=== PATIENT | female | born 1930 | race Hispanic/Latino ===

== ENCOUNTER 2018-01-08 21:28 | Emergency (ER) | payer MEDICARE ==
[2018-01-08 21:37] VITALS: TEMP 97.7
--- NOTE | 2018-01-08 21:39 | C.PDOC ---
History Of Present Illness The patient presents to the ED for evaluation of abdominal pain which began earlier today. Patient states she began experiencing pain to her "upper stomach " region after she took Tramadol for her rib pain. She denies fever, chills, nausea, vomiting. Time Seen by Provider: 01/08/18 21:38 Chief Complaint (Nursing): Abdominal Pain History Per: Patient History/Exam Limitations: no limitations Onset/Duration Of Symptoms: Hrs Current Symptoms Are (Timing): Still Present Severity: Mild Pain Scale Rating Of: 2 Location Of Pain/Discomfort: Other (upper abdomen ) Radiation Of Pain To:: None Quality Of Discomfort: "Pain" Associated Symptoms: denies: Fever, Chills, Nausea, Vomiting Exacerbating Factors: None Alleviating Factors: None Last Bowel Movement: Today Recent travel outside of the [place]: No Additional History Per: Patient Abnormal Vaginal Bleeding: No Past Medical History Reviewed: Historical Data, Nursing Documentation, Vital Signs Vital Signs: Last Vital Signs Temp 97.7 F 01/08/18 21:33 Pulse 72 01/08/18 22:31 Resp 20 01/08/18 22:31 BP 156/89 H 01/08/18 22:31 Pulse Ox 98 01/08/18 23:41 - Medical History PMH: Arthritis (KNEES), Atrial Fibrillation, HTN Surgical History: No Surg Hx - [facility] Procedures CORONAR ARTERIOGR-2 CATH (11/18/06) RT & LT HEART ANGIOCARD (11/18/06) RT/LEFT HEART CARD CATH (11/18/06) Family History: States: Unknown Family Hx - Social History Hx Alcohol Use: No Hx Substance Use: No - Immunization History Hx Tetanus Toxoid Vaccination: No Hx Influenza Vaccination: Yes Hx Pneumococcal Vaccination: No Review Of Systems Constitutional: Negative for: Fever, Chills Cardiovascular: Negative for: Chest Pain, Palpitations Respiratory: Negative for: Cough, Shortness of Breath Gastrointestinal: Positive for: Abdominal Pain. Negative for: Nausea, Vomiting , Diarrhea, Constipation Musculoskeletal: Positive for: Other (rib pain ) Skin: Negative for: Rash, Lesions, Jaundice, Bruising Neurological: Negative for: Weakness, Numbness Physical Exam - Physical Exam Appears: Non-toxic, No Acute Distress Skin: Warm, Dry Head: Normacephalic Eye(s): bilateral: Normal Inspection Oral Mucosa: Moist Neck: Supple Chest: Symmetrical, No Deformity, No Tenderness Cardiovascular: Rhythm Regular, No Murmur Respiratory: No Rales, No Rhonchi, No Wheezing Gastrointestinal/Abdominal: Soft, Tenderness (mild, to mid-epigastric region ), No Guarding, No Rebound Extremity: Normal ROM, Capillary Refill (less than 2 seconds ) Neurological/Psych: Oriented x3 Gait: Steady ED Course And Treatment - Laboratory Results Result Diagrams: 01/08/18 21:49 01/08/18 21:49 ECG: Interpreted By Me, Viewed By Me ECG Rhythm: Sinus Rhythm (75), 1st Degree HB, Nonspecific Changes O2 Sat by Pulse Oximetry: 98 (on RA) Pulse Ox Interpretation: Normal Progress Note: Bloodwork, urinalysis, EKG ordered. Zofran IVP and IV Fluids administered. Reevaluation Time: 23:37 Reassessment Condition: Improved Medical Decision Making Medical Decision Making: Upon provider reevaluation patient is feeling better, is medically stable, and requires no further treatment in the ED at this time. Patient will be discharged home . Counseling was provided and all questions were answered regarding diagnosis and need for follow up with dr magana. There is agreement to discharge plan. Return if symptoms persist or worsen. Disposition Counseled Patient/Family Regarding: Studies Performed, Diagnosis, Need For Followup, Rx Given - Disposition Referrals: Mic Magana MD [Staff Provider] - Disposition: HOME/ ROUTINE Disposition Time: 21:39 Condition: FAIR Instructions: Gastritis (DC), Adverse Drug Reactions, Adult (DC) Forms: [facility] (Gambian) - Clinical Impression Clinical Impression: Abdominal pain, Gastritis, Medication reaction - Scribe Statement The provider has reviewed the documentation as recorded by the Scribe (Maryan Benitez) Provider Attestation: All medical record entries made by the Scribe were at my direction and personally dictated by me. I have reviewed the chart and agree that the record accurately reflects my personal performance of the history, physical exam, medical decision making, and the department course for this patient. I have also personally directed, reviewed, and agree with the discharge instructions and disposition.
[2018-01-08] MEDS ORDERED: Sodium Chloride 0.9% 1,000 ML IV ONE (21:40)
[2018-01-08] MEDS ORDERED: Sodium Chloride 0.9% 1,000 ML ONE (21:49)
[2018-01-08 21:58] LABS: BASO % 0.7 % (0.0-2.0); HEMOGLOBIN 14.3 g/dL (11.0-16.0); LYMPH # 0.6 K/uL (1.0-4.3); MEAN CELL VOLUME 87.8 fL (81.0-99.0); MEAN CORPUSCULAR HEMOGLOBIN 30.8 pg (27.0-31.0); MEAN CORPUSCULAR HGB CONC 35.1 g/dL (33.0-37.0); MEAN PLATELET VOLUME 6.6 fL (7.2-11.7); MONO # 0.3 K/uL (0.0-0.8); MONO % 4.2 % (0.0-10.0); NEUT # 6.6 K/uL (1.8-7.0); NEUT % 87.1 % (50.0-75.0); NRBC % 0.2 % (0.0-2.0); PLATELET COUNT 296 K/uL (130-400); RBC 4.64 Mil/uL (3.80-5.20); RED CELL DISTRIBUTION WIDTH 14.8 % (11.5-14.5); WHITE BLOOD COUNT 7.6 K/uL (4.8-10.8)
[2018-01-08 22:01] LABS: INR 1.3; PROTHROMBIN TIME 14.4 SECONDS (9.7-12.2)
[2018-01-08 22:05] LABS: ALB/GLOB RATIO 1.4 (1.0-2.1); ALBUMIN 4.3 g/dL (3.5-5.0); ALT/SGPT 29 U/L (9-52); AST/SGOT 24 U/L (14-36); BLOOD UREA NITROGEN 14 mg/dL (7-17); GFR AFRICAN-AMERICAN > 60; GFR NON-AFRICAN AMERICAN > 60; LIPASE 91 U/L (23-300)
[2018-01-08 22:15] LABS: URINE BILIRUBIN NEGATIVE (NEGATIVE); URINE BLOOD 1+ (NEGATIVE); URINE CLARITY Clear (Clear); URINE COLOR Yellow (YELLOW); URINE GLUCOSE (UA) NORMAL (Normal); URINE LEUKOCYTE ESTERASE TRACE Leu/uL (Negative); URINE PROTEIN NEGATIVE (NEGATIVE)
[2018-01-08 22:26] LABS: BANDS 2 % (0-2); BASOPHIL 1 % (0-2); LYMPHOCYTE 6 % (20-40); MONOCYTE 4 % (0-10); NEUTROPHIL 87 % (50-75); PLATELET ESTIMATE NORMAL (NORMAL); TOTAL CELLS COUNTED 100
[2018-01-08 22:27] LABS: ANISOCYTOSIS SLIGHT; MICROCYTOSIS SLIGHT
[2018-01-09 02:14] VITALS: BP 163/86; PULSE 75; RESP 17; O2SAT 95
== END 2018-01-09 02:45 | disposition home or self-care (01) ==
LOC: C.ER 21:28
DX: K29.70 Gastritis, unspecified, without bleeding (principal); R10.9 Unspecified abdominal pain; T40.4X5A Adverse effect of other synthetic narcotics, initial encounter; I10 Essential (primary) hypertension; I48.91 Unspecified atrial fibrillation
CPT/HCPCS: 80053; 81001; 83690; 85025; 85610; 85730; 96374; 99285; J2405; J7040

== ENCOUNTER 2018-02-19 18:53 | Emergency (ER) | payer MEDICARE, BC ==
--- NOTE | 2018-02-19 19:31 | C.PDOC ---
History Of Present Illness 87 y/o female presents to the ED via EMS with vague complaint of intermittent abdominal pain for the past several months. Pain comes and goes, and is occasionally associated with difficulty breathing. Patient's daughter called EMS this evening. On arrival, patient has no pain at this time. Patient is a very poor historian, and the only PMHx she calls is hypertension. Otherwise patient denies any nausea, vomiting, fever, change in bowel habits, or loss of appetite. PMD: Dr. Mic May Time Seen by Provider: 02/19/18 19:22 Chief Complaint (Nursing): Abdominal Pain History Per: Patient History/Exam Limitations: other (poor historian) Onset/Duration Of Symptoms: Intermittent Episodes Current Symptoms Are (Timing): Gone Past Medical History Reviewed: Historical Data, Nursing Documentation, Vital Signs Vital Signs: Last Vital Signs Temp 98.0 F 02/19/18 19:12 Pulse 67 02/19/18 19:12 Resp 14 02/19/18 19:12 BP 106/67 02/19/18 19:12 Pulse Ox 100 02/19/18 22:28 - Medical History PMH: Arthritis (KNEES), Atrial Fibrillation, HTN Other Surgeries: Hysterectomy - [facility] Procedures CORONAR ARTERIOGR-2 CATH (11/18/06) RT & LT HEART ANGIOCARD (11/18/06) RT/LEFT HEART CARD CATH (11/18/06) Family History: States: Unknown Family Hx - Social History Hx Tobacco Use: No Hx Alcohol Use: No Hx Substance Use: No - Immunization History Hx Tetanus Toxoid Vaccination: No Hx Influenza Vaccination: Yes Hx Pneumococcal Vaccination: No Review Of Systems Except As Marked, All Systems Reviewed And Found Negative. Constitutional: Negative for: Fever, Chills Gastrointestinal: Positive for: Abdominal Pain (now resolved). Negative for: Nausea, Vomiting, Diarrhea, Constipation, Other (change in appetite) Physical Exam - Physical Exam Appears: Non-toxic, No Acute Distress, Other (Awake, alert) Skin: Dry, Pale, No Cyanotic Head: Atraumatic, Normacephalic Eye(s): bilateral: Normal Inspection, PERRL, EOMI Oral Mucosa: Moist Neck: Normal ROM, Supple Chest: Symmetrical Cardiovascular: No Murmur, Other (S1, S2 are wnl) Respiratory: Normal Breath Sounds (Lungs CTA bilaterally), No Rales, No Rhonchi , No Wheezing Gastrointestinal/Abdominal: Bowel Sounds (active bowel sounds, +tympanic to percussion), Soft, No Tenderness, Other (abdomen protuberant, with well-healed vertical scar in the midline suprapubic area) Extremity: Bilateral: Atraumatic, Normal Color And Temperature (without edema, clubbing, or cyanosis), Normal ROM Pulses: Left Dorsalis Pedis: Normal, Right Dorsalis Pedis: Normal Neurological/Psych: Oriented x3, Normal Speech, Normal Cranial Nerves (CN 2-12 intact), Other (No focal deficits) ED Course And Treatment - Laboratory Results Result Diagrams: 02/19/18 20:00 02/19/18 20:00 Lab Interpretation: Abnormal (UA indicative of UTI) O2 Sat by Pulse Oximetry: 100 (RA) Pulse Ox Interpretation: Normal - Other Rad abd x-ray X-Ray: Interpreted by Me, Viewed By Me Interpretation: + Nonspecific bowel gas pattern, severe scoliosis, otherwise negative. Medical Decision Making Medical Decision Making: Impression: Abdominal pain, currently resolved Initial Plan: --Routine blood work --Urinalysis --Obstructive series x-ray Progress/Updates: X-ray shows nonspecific bowel gas pattern, no acute findings. Blood work is grossly normal. Urine shows + leuks, WBCs, and RBCs. Final Impression: UTI Plan is to discharge patient on PO antibiotics. Case was discussed with patient' s PMD, Dr. May, who agrees with management and will have patient follow up in the office. Patient verbalizes understanding of diagnosis and treatment plan. Disposition Discussed With .: Mic May Doctor Will See Patient In The: Office Counseled Patient/Family Regarding: Studies Performed, Diagnosis, Need For Followup, Rx Given - Disposition Referrals: Mic May MD [Staff Provider] - Disposition: HOME/ ROUTINE Disposition Time: 22:27 Condition: GOOD Prescriptions: Ciprofloxacin HCl [Cipro] 500 mg PO BID #20 tablet Instructions: Urinary Tract Infections in Adults Forms: [facility] (Angolan) Print Language: IRISH - POA Present On Arrival: None - Clinical Impression Clinical Impression: UTI (urinary tract infection) - Scribe Statement The provider has reviewed the documentation as recorded by the Scribe (Mary Beth Khan) Provider Attestation: All medical record entries made by the Scribe were at my direction and personally dictated by me. I have reviewed the chart and agree that the record accurately reflects my personal performance of the history, physical exam, medical decision making, and the department course for this patient. I have also personally directed, reviewed, and agree with the discharge instructions and disposition.
[2018-02-19 20:09] LABS: BASO # 0.1 K/uL (0.0-0.2); BASO % 1.1 % (0.0-2.0); HEMOGLOBIN 14.1 g/dL (11.0-16.0); LYMPH % 20.5 % (20.0-40.0); MEAN CORPUSCULAR HEMOGLOBIN 29.8 pg (27.0-31.0); MEAN CORPUSCULAR HGB CONC 33.5 g/dL (33.0-37.0); MEAN PLATELET VOLUME 6.7 fL (7.2-11.7); MONO # 0.5 K/uL (0.0-0.8); MONO % 9.8 % (0.0-10.0); NEUT # 3.3 K/uL (1.8-7.0); NEUT % 68.6 % (50.0-75.0); NRBC % 0.1 % (0.0-2.0); RBC 4.74 Mil/uL (3.80-5.20); RED CELL DISTRIBUTION WIDTH 14.9 % (11.5-14.5); WHITE BLOOD COUNT 4.8 K/uL (4.8-10.8)
[2018-02-19 20:28] LABS: ALB/GLOB RATIO 1.5 (1.0-2.1); ALBUMIN 4.6 g/dL (3.5-5.0); ALT/SGPT 35 U/L (9-52); AST/SGOT 33 U/L (14-36); BLOOD UREA NITROGEN 11 mg/dL (7-17); CALCIUM 9.3 mg/dl (8.6-10.4); GFR AFRICAN-AMERICAN > 60; GFR NON-AFRICAN AMERICAN > 60; LIPASE 149 U/L (23-300)
[2018-02-19 20:55] LABS: URINE BILIRUBIN NEGATIVE (NEGATIVE); URINE BLOOD 1+ (NEGATIVE); URINE CLARITY Clear (Clear); URINE COLOR Straw (YELLOW); URINE GLUCOSE (UA) NORMAL (Normal); URINE LEUKOCYTE ESTERASE 2+ Leu/uL (Negative); URINE PROTEIN NEGATIVE (NEGATIVE); URINE UROBILINOGEN NORMAL mg/dL (0.2-1.0)
[2018-02-19 22:39] VITALS: BP 144/87
[2018-02-20 00:36] VITALS: PULSE 78; RESP 20; TEMP 97.8
[2018-02-20 05:06] VITALS: O2SAT 100
--- NOTE | 2018-02-20 09:06 | RAD ---
PROCEDURE: Radiographs of the chest and abdomen (obstructive series) HISTORY: abd pain COMPARISON: No prior. TECHNIQUE: AP radiograph of the chest, with upright and supine radiographs of the abdomen. FINDINGS: CHEST: Lungs: Clear. Cardiovascular: Dextro cardia. Left aortic arch. Shift of the heart and mediastinum towards the right side. Pleura: No pleural fluid. No pneumothorax. Other findings: None. ABDOMEN AND PELVIS: Bowel: Unremarkable bowel gas pattern. No evidence of mechanical obstruction. Free air: None. Bones: Status post ORIF right intertrochanteric fracture. Other findings: None. IMPRESSION: No acute infiltrate. No evidence of bowel obstruction. Dextro cardia with left aortic arch. Shift of heart and mediastinum towards the left.
--- NOTE | 2018-02-20 17:13 | CARD ---
APPROVED REPORT EKG Measurement Heart [id number] <Conclusion> Atrial fibrillation Abnormal ECG
== END 2018-02-20 00:36 | disposition home or self-care (01) ==
LOC: C.ER 18:53
DX: N39.0 Urinary tract infection, site not specified (principal); I10 Essential (primary) hypertension; I48.91 Unspecified atrial fibrillation

== ENCOUNTER 2018-02-23 03:24 | Inpatient (IN) | payer MEDICARE, BC ==
--- NOTE | 2018-02-23 03:39 | C.PDOC ---
History Of Present Illness 87 year old female presents to the ED c/o abdominal pain. Patient was seen in the ED on 02/19 for similar complaints with a negative workup. Patient describes her pain as dull aching. Patient denies fever, chills, nausea, vomit. Patient is poor historian. Time Seen by Provider: 02/23/18 03:38 History Per: Patient History/Exam Limitations: no limitations Onset/Duration Of Symptoms: Days Current Symptoms Are (Timing): Still Present Context: Other Severity: Moderate Pain Scale Rating Of: 4 Location Of Pain/Discomfort: Diffuse Radiation Of Pain To:: None Quality Of Discomfort: Dull, Aching Associated Symptoms: denies: Nausea, Vomiting, Diarrhea Exacerbating Factors: None Alleviating Factors: None Last Bowel Movement: Days Ago Recent travel outside of the [place]: No Additional History Per: Patient Abnormal Vaginal Bleeding: No Past Medical History Reviewed: Historical Data, Nursing Documentation, Vital Signs Vital Signs: Last Vital Signs Temp 97.6 F 02/23/18 03:34 Pulse 77 02/23/18 03:34 Resp 18 02/23/18 03:34 BP 157/98 H 02/23/18 03:34 Pulse Ox 97 02/23/18 04:54 - Medical History PMH: Arthritis (KNEES), Atrial Fibrillation, HTN Surgical History: No Surg Hx - [facility] Procedures CORONAR ARTERIOGR-2 CATH (11/18/06) RT & LT HEART ANGIOCARD (11/18/06) RT/LEFT HEART CARD CATH (11/18/06) Family History: States: Unknown Family Hx - Social History Hx Tobacco Use: No Hx Alcohol Use: No Hx Substance Use: No - Immunization History Hx Tetanus Toxoid Vaccination: No Hx Influenza Vaccination: Yes Hx Pneumococcal Vaccination: No Review Of Systems Constitutional: Negative for: Fever, Chills Cardiovascular: Negative for: Chest Pain Respiratory: Negative for: Shortness of Breath Gastrointestinal: Positive for: Abdominal Pain. Negative for: Nausea, Vomiting Musculoskeletal: Negative for: Back Pain Skin: Negative for: Rash Physical Exam - Physical Exam Appears: Non-toxic, No Acute Distress Skin: Warm, Dry Head: Normacephalic Eye(s): bilateral: Normal Inspection Oral Mucosa: Moist Neck: Supple Chest: Symmetrical Cardiovascular: Rhythm Irregular Respiratory: No Rales, No Rhonchi, No Wheezing Gastrointestinal/Abdominal: Soft, Tenderness (mild diffuse), No Guarding, No Rebound, Other (tympanic to percussion) Back: No CVA Tenderness Extremity: Normal ROM, No Tenderness, No Swelling Extremity: Bilateral: Atraumatic Neurological/Psych: Oriented x3 Gait: With Assistance ED Course And Treatment - Laboratory Results Result Diagrams: 02/23/18 04:01 02/23/18 04:01 ECG: Interpreted By Me, Viewed By Me ECG Rhythm: Atrial Fibrillation (76), Nonspecific Changes O2 Sat by Pulse Oximetry: 97 (ON RA) Pulse Ox Interpretation: Normal Progress Note: Plan: - CT abd/pelvis. - Labs. - IV fluids. - UA Disposition Discussed With Dr.: Nikolay May Comment: accepted the pt on his service and took over the care at 6:55 AM Doctor Will See Patient In The: Hospital Counseled Patient/Family Regarding: Studies Performed, Diagnosis - Disposition Disposition: HOSPITALIZED Disposition Time: 03:38 Condition: FAIR - POA Present On Arrival: None - Clinical Impression Clinical Impression: Nausea, Constipation, Abdominal pain, Atrial fibrillation - Scribe Statement The provider has reviewed the documentation as recorded by the Scribe Jeanmarie Centeno All medical record entries made by the Scribe were at my direction and personally dictated by me. I have reviewed the chart and agree that the record accurately reflects my personal performance of the history, physical exam, medical decision making, and the department course for this patient. I have also personally directed, reviewed, and agree with the discharge instructions and disposition. Physician Patient Turnover Patient Signed Over To: Nikolay May Handoff Comments: pending re-eval, and call back from PMD Decision To Admit - Pt Status Changed To: Hospital Disposition Of: Inpatient - Admit Certification Admit to Inpatient:: After my assessment, the patient will require hospitalization for at least two midnights. This is because of the severity of symptoms shown, intensity of services needed, and/or the medical risk in this patient being treated as an outpatient. - InPatient: Physician Admission Certification:: After my assessment, the patient will require hospitalization for at least two midnights. This is because of the severity of symptoms shown, intensity of services needed, and/or the medical risk in this patient being treated as an outpatient. - . Bed Request Type: Regular Admitting Physician: Nikolay May Patient Diagnosis: Nausea, Constipation, Abdominal pain, Atrial fibrillation
[2018-02-23] MEDS ORDERED: Sodium Chloride 0.9% 1,000 ML IV ONE (03:44)
[2018-02-23 04:15] LABS: BASO # 0.1 K/uL (0.0-0.2); BASO % 1.3 % (0.0-2.0); HEMOGLOBIN 13.5 g/dL (11.0-16.0); LYMPH # 1.1 K/uL (1.0-4.3); LYMPH % 20.5 % (20.0-40.0); MEAN CELL VOLUME 88.6 fL (81.0-99.0); MEAN CORPUSCULAR HEMOGLOBIN 30.1 pg (27.0-31.0); MEAN PLATELET VOLUME 6.7 fL (7.2-11.7); MONO # 0.5 K/uL (0.0-0.8); MONO % 9.4 % (0.0-10.0); NEUT # 3.7 K/uL (1.8-7.0); NEUT % 68.8 % (50.0-75.0); RBC 4.48 Mil/uL (3.80-5.20); RED CELL DISTRIBUTION WIDTH 14.6 % (11.5-14.5); WHITE BLOOD COUNT 5.3 K/uL (4.8-10.8)
[2018-02-23 04:17] LABS: ALB/GLOB RATIO 1.5 (1.0-2.1); ALBUMIN 4.2 g/dL (3.5-5.0); ALT/SGPT 28 U/L (9-52); AST/SGOT 28 U/L (14-36); BLOOD UREA NITROGEN 13 mg/dL (7-17); GFR AFRICAN-AMERICAN > 60; GFR NON-AFRICAN AMERICAN > 60; LIPASE 118 U/L (23-300)
[2018-02-23 04:50] LABS: SQUAMOUS EPITHIAL < 1 /hpf (0-5); URINE BACTERIA RARE (<OCC); URINE BILIRUBIN NEGATIVE (NEGATIVE); URINE BLOOD 1+ (NEGATIVE); URINE CLARITY Clear (Clear); URINE COLOR Straw (YELLOW); URINE GLUCOSE (UA) NORMAL (Normal); URINE LEUKOCYTE ESTERASE NEG Leu/uL (Negative); URINE PROTEIN NEGATIVE (NEGATIVE); URINE UROBILINOGEN NORMAL mg/dL (0.2-1.0)
[2018-02-23] MEDS ORDERED: Iodixanol 320 MG/ML 100 ML BOTTLE IV ONE (04:53)
[2018-02-23] MEDS ORDERED: Magnesium Citrate Oral SOL (300 ml) PO ONE (06:57)
[2018-02-23 07:41] VITALS: RESP 20
--- NOTE | 2018-02-23 09:07 | CP.PCM.HP ---
History of Present Illness - History of Present Illness History of Present Illness: CC: abd pain 87 y/o female with HTN, At Fib, meningioma, Frieda abd pain w/ constipation and Anxiety dis. Patient seen in ER on 02/21 and again last ight for UTI and abd pain. Repeat CT showed fecal impaction. She was advise observation. Present on Admission - Present on Admission Any Indicators Present on Admission: Yes History of DVT/PE: No History of Uncontrolled Diabetes: No Urinary Catheter: No Decubitus Ulcer Present: No Review of Systems - Constitutional Constitutional: absent: Daytime Sleepiness, Excessive Sweating, Snoring - EENT Eyes: absent: Blind Spots, Diplopia, Discharge, Loss of Peripheral Vision, Sees Flashes Ears: Disequilibrium. absent: Decreased Hearing, Ear Discharge, Ear Pain Nose/Mouth/Throat: absent: Nasal Congestion, Change in Voice, Hoarsness, Odynophagia - Cardiovascular Cardiovascular: absent: Chest Pain, Irregular Heart Rhythm, Leg Edema, Leg Ulcers, Palpitations, Pedal Edema - Respiratory Respiratory: absent: Cough, Dyspnea, Hemoptysis, Excessive Mucous Production, Change in Mucous Color - Gastrointestinal Gastrointestinal: Abdominal Pain, Belching, Bloating, Cramping, Dyspepsia. absent: Diarrhea, Dysphagia, Heartburn, Hematochezia, Nausea, Vomiting - Genitourinary Genitourinary: absent: Difficulty Urinating, Dysuria, Hematuria, Nocturia, Urinary Urgency - Musculoskeletal Musculoskeletal: Abnormal Gait. absent: Atrophy, Back Pain, Loss of Height, Neck Pain - Integumentary Integumentary: absent: Hirsutism, New Lesions, Rash, Wounds - Neurological Neurological: absent: Abnormal Gait, Dizziness, Numbness, Loss of Vision, Restless Legs - Psychiatric Psychiatric: absent: Change in Appetite, Depression, Hopelessness, Paranoia - Hematologic/Lymphatic Hematologic: absent: Easy Bleeding, Easy Bruising, Lymphadenopathy Past Patient History - Infectious Disease Hx of Infectious Diseases: None - Past Medical History & Family History Past Medical History?: Yes - Past Social History Smoking Status: Never Smoked - CARDIAC Hx Atrial Fibrillation: Yes Hx Hypertension: Yes - PULMONARY Hx Respiratory Disorders: No - NEUROLOGICAL Hx Neurological Disorder: Yes Other/Comment: benign menigioma - HEENT Hx HEENT Problems: Yes Hx Glaucoma: Yes - RENAL Hx Chronic Kidney Disease: Yes Other/Comment: weak bladder - ENDOCRINE/METABOLIC Hx Endocrine Disorders: No - HEMATOLOGICAL/ONCOLOGICAL Hx Blood Disorders: No - INTEGUMENTARY Hx Dermatological Problems: No - MUSCULOSKELETAL/RHEUMATOLOGICAL Hx Arthritis: Yes (KNEES) - GASTROINTESTINAL Hx Gastrointestinal Disorders: No - GENITOURINARY/GYNECOLOGICAL Hx Genitourinary Disorders: Yes Hx Urinary Tract Infection: Yes - PSYCHIATRIC Hx Substance Use: No - SURGICAL HISTORY Hx Surgeries: Yes Hx Hysterectomy: Yes Other/Comment: BREAST AND ABD BIOPSIES (BENIGN) - ANESTHESIA Hx Anesthesia: Yes Meds Allergies/Adverse Reactions: Allergies Allergy/AdvReac Type Severity Reaction Status Date / Time No Known Allergies Allergy Verified 02/23/18 03:39 Physical Exam - Constitutional Appears: No Acute Distress - Eye Exam Eye Exam: Normal appearance - ENT Exam ENT Exam: Mucous Membranes Moist - Neck Exam Neck exam: Positive for: Full Rom. Negative for: Lymphadenopathy, Normal Inspection - Respiratory Exam Respiratory Exam: Clear to Auscultation Bilateral. absent: Rales, Rhonchi, Wheezes - Cardiovascular Exam Cardiovascular Exam: Irregular Rhythm, +S1, +S2, Systolic Murmur. absent: Diastolic murmur, Gallop, JVD - GI/Abdominal Exam GI & Abdominal Exam: Soft, Tenderness. absent: Rebound, Rigid Results - Vital Signs Recent Vital Signs: Last Vital Signs Temp 97.6 F 02/23/18 08:42 Pulse 65 02/23/18 08:42 Resp 20 02/23/18 08:42 BP 160/82 H 02/23/18 08:42 Pulse Ox 97 02/23/18 08:42 - Labs Result Diagrams: 02/23/18 04:01 02/23/18 04:01 Labs: Laboratory Results - last 24 hr 02/23/18 02/23/18 02/23/18 04:01 04:01 04:45 WBC 5.3 RBC 4.48 Hgb 13.5 Hct 39.7 MCV 88.6 MCH 30.1 MCHC 34.0 RDW 14.6 H Plt Count 238 MPV 6.7 L Neut % (Auto) 68.8 Lymph % (Auto) 20.5 Williamson % (Auto) 9.4 Eos % (Auto) 0.0 Baso % (Auto) 1.3 Neut # (Auto) 3.7 Lymph # (Auto) 1.1 Williamson # (Auto) 0.5 Eos # (Auto) 0.0 Baso # (Auto) 0.1 Sodium 138 Potassium 3.6 Chloride 97 L Carbon Dioxide 29 Anion Gap 15 BUN 13 Creatinine 0.6 L Est GFR ( Amer) > 60 Est GFR (Non-Af Amer) > 60 Random Glucose 91 Calcium 9.0 Total Bilirubin 0.9 AST 28 ALT 28 Alkaline Phosphatase 51 Total Protein 7.1 Albumin 4.2 Globulin 2.9 Albumin/Globulin Ratio 1.5 Lipase 118 Urine Color Straw Urine Clarity Clear Urine pH 7.0 Ur Specific [place] 1.003 Urine Protein Negative Urine Glucose (UA) Normal Urine Ketones Negative Urine Blood 1+ H Urine Nitrate Negative Urine Bilirubin Negative Urine Urobilinogen Normal Ur Leukocyte Esterase Neg Urine WBC (Auto) 1 Urine RBC (Auto) 4 H Ur Squamous Epith Cells < 1 Urine Bacteria Rare - EKG Data EKG Interpreted by: Myself - EKG Data When Compared to Previous EKG: No Significant Change Assessment & Plan - Assessment and Plan (Free Text) Assessment: Abd Pain; Constipation; UTI At Fib; Anxiety dis Supportive care restart OPD meds
--- NOTE | 2018-02-23 10:29 | CT ---
PROCEDURE: CT Abdomen and Pelvis without intravenous contrast HISTORY: abd pain COMPARISON: None. TECHNIQUE: Technique. Contrast dose: Radiation dose: Total exam DLP = mGy-cm. This CT exam was performed using one or more of the following dose reduction techniques: Automated exposure control, adjustment of the mA and/or kV according to patient size, and/or use of iterative reconstruction technique. FINDINGS: LOWER THORAX: Right middle lobe atelectasis. LIVER: Unremarkable. No gross lesion or ductal dilatation. GALLBLADDER AND BILE DUCTS: Unremarkable. PANCREAS: Unremarkable. No gross lesion or ductal dilatation. SPLEEN: Unremarkable. ADRENALS: Unremarkable. No mass. KIDNEYS AND URETERS: Multiple bilateral renal cysts. . No hydronephrosis. No solid mass. VASCULATURE: Unremarkable. No aortic aneurysm. BOWEL: Extensive colonic diverticulosis. Abundant stool throughout the colon. . No obstruction. No gross mural thickening. APPENDIX: Unremarkable. Normal appendix. PERITONEUM: Unremarkable. No free fluid. No free air. LYMPH NODES: Unremarkable. No enlarged lymph nodes. BLADDER: Unremarkable. REPRODUCTIVE: Unremarkable. BONES: No acute fracture. OTHER FINDINGS: None. IMPRESSION: Extensive colonic diverticulosis. Abundant stool throughout the colon. Right middle lobe atelectasis.
[2018-02-23 11:14] LABS: INR 2.4; PROTHROMBIN TIME 26.1 SECONDS (9.7-12.2)
[2018-02-24 01:14] VITALS: TEMP 97.5
[2018-02-24 07:36] VITALS: BP 149/83; PULSE 75; O2SAT 95
--- NOTE | 2018-02-24 08:27 | CP.PCM.PN ---
Subjective - Date & Time of Evaluation Date of Evaluation: 02/23/18 Time of Evaluation: 08:00 - Subjective Subjective: Pt no complain; no abd pain this AM No CP, no SOB, no edema, no cough, no n/v, no dysuria Objective - Vital Signs/Intake and Output Vital Signs (last 24 hours): Temp Pulse Resp BP Pulse Ox 97.5 F L 75 20 149/83 95 02/24/18 07:29 02/24/18 07:29 02/24/18 07:29 02/24/18 07:29 02/24/18 07:29 Intake and Output: 02/24/18 02/24/18 06:59 18:59 Intake Total 900 Balance 900 - Medications Medications: Current Medications Amlodipine Besylate (Norvasc) 10 mg PO DAILY [facility] [place] Last Admin: 02/23/18 12:52 Dose: 10 mg Atenolol (Tenormin) 50 mg PO DAILY [facility] [place] Last Admin: 02/23/18 12:51 Dose: 50 mg Ciprofloxacin (Cipro) 500 mg PO BID [facility] [place] PRN Reason: Protocol Last Admin: 02/23/18 17:03 Dose: 500 mg Diazepam (Valium) 5 mg PO QAM [facility] [place] Last Admin: 02/23/18 10:20 Dose: 5 mg Diazepam (Valium) 10 mg PO QPM [facility] [place] Last Admin: 02/23/18 17:03 Dose: 10 mg - Labs Labs: 02/23/18 04:01 02/23/18 04:01 PT 26.1 SECONDS (9.7-12.2) H 02/23/18 11:04 INR 2.4 02/23/18 11:04 - Constitutional Appears: No Acute Distress - Eye Exam Eye Exam: Normal appearance - ENT Exam ENT Exam: Mucous Membranes Moist - Neck Exam Neck Exam: Full ROM, Normal Inspection. absent: Thyromegaly - Respiratory Exam Respiratory Exam: Clear to Ausculation Bilateral. absent: Rales, Rhonchi, Wheezes - Cardiovascular Exam Cardiovascular Exam: Irregular Rhythm, +S1, +S2, Murmur. absent: Gallop, JVD - GI/Abdominal Exam GI & Abdominal Exam: Soft. absent: Tenderness - Extremities Exam Extremities Exam: Full ROM, Normal Capillary Refill. absent: Calf Tenderness, Joint Swelling Assessment and Plan - Assessment and Plan (Free Text) Assessment: Abd pain; Anxiety dis HTN, At fib; diverticulosis Cont meds Restart Warfarin For discharge
[2018-02-24 12:04] LABS: ALB/GLOB RATIO 1.4 (1.0-2.1); ALBUMIN 3.4 g/dL (3.5-5.0); ALT/SGPT 27 U/L (9-52); AST/SGOT 21 U/L (14-36); BLOOD UREA NITROGEN 12 mg/dL (7-17); CALCIUM 8.4 mg/dl (8.6-10.4); GFR AFRICAN-AMERICAN > 60; GFR NON-AFRICAN AMERICAN > 60
--- NOTE | 2018-02-24 23:48 | CARD ---
APPROVED REPORT EKG Measurement Heart [id number] <Conclusion> Atrial fibrillation Nonspecific T wave abnormality Abnormal ECG
== END 2018-02-24 13:11 | disposition home or self-care (01) | DRG 690 ==
LOC: C.ER 03:24 → C.9E 06:54 → C.5S 07:35
PROVIDERS: ADMIT Internal Medicine; ATTEND Internal Medicine
DX: N39.0 Urinary tract infection, site not specified (principal); Z68.1 Body mass index [BMI] 19.9 or less, adult; K56.41 Fecal impaction; I48.91 Unspecified atrial fibrillation; F41.9 Anxiety disorder, unspecified; I12.9 Hypertensive chronic kidney disease with stage 1 through stage 4 chronic kidney disease, or unspecified chronic kidney disease; K57.90 Diverticulosis of intestine, part unspecified, without perforation or abscess without bleeding; M17.0 Bilateral primary osteoarthritis of knee; N18.9 Chronic kidney disease, unspecified; H40.9 Unspecified glaucoma; D32.9 Benign neoplasm of meninges, unspecified

== ENCOUNTER 2018-02-27 12:36 | Emergency (ER) | payer MEDICARE, BC ==
[2018-02-27 12:46] VITALS: RESP 20
--- NOTE | 2018-02-27 13:03 | C.PDOC ---
History Of Present Illness 87yo female, with history of AFib, HTN, comes to ER for evaluation of a vague abdominal pain. Patient states she has been constipated and has not made a bowel movement in 3 days. She denies any fever, chills, vomiting, hematemesis, or bloody stools. She has no other complaints. Time Seen by Provider: 02/27/18 12:38 Chief Complaint (Nursing): GI Problem History Per: Patient History/Exam Limitations: no limitations Onset/Duration Of Symptoms: Unknown Current Symptoms Are (Timing): Still Present Location Of Pain/Discomfort: Diffuse Quality Of Discomfort: "Pain" Associated Symptoms: Constipation. denies: Fever, Chills, Nausea, Vomiting, Diarrhea, Chest Pain Additional History Per: Patient Past Medical History Reviewed: Historical Data, Nursing Documentation, Vital Signs Vital Signs: Last Vital Signs Temp 97.9 F 02/27/18 15:24 Pulse 61 02/27/18 15:24 Resp 20 02/27/18 15:24 BP 132/68 02/27/18 15:24 Pulse Ox 99 02/27/18 16:07 - Medical History PMH: Arthritis, Atrial Fibrillation, HTN, Chronic Kidney Disease Surgical History: No Surg Hx - [facility] Procedures CORONAR ARTERIOGR-2 CATH (11/18/06) RT & LT HEART ANGIOCARD (11/18/06) RT/LEFT HEART CARD CATH (11/18/06) Family History: States: No Known Family Hx, Unknown Family Hx - Social History Hx Tobacco Use: No Hx Alcohol Use: No Hx Substance Use: No - Immunization History Hx Tetanus Toxoid Vaccination: No Hx Influenza Vaccination: Yes Hx Pneumococcal Vaccination: No Review Of Systems Except As Marked, All Systems Reviewed And Found Negative. Constitutional: Negative for: Fever, Chills Cardiovascular: Negative for: Chest Pain Respiratory: Negative for: Shortness of Breath Gastrointestinal: Positive for: Abdominal Pain, Constipation. Negative for: Nausea, Vomiting, Diarrhea, Hematochezia, Hematemesis Physical Exam - Physical Exam Appears: Non-toxic, No Acute Distress Skin: Warm, Dry Head: Normacephalic Eye(s): bilateral: Normal Inspection Neck: Supple Chest: Symmetrical Cardiovascular: Rhythm Regular Respiratory: Normal Breath Sounds Gastrointestinal/Abdominal: Soft, Tenderness (diffuse abdominal tenderness), No Mass, No Guarding, No Rebound Extremity: Normal ROM Neurological/Psych: Oriented x3 ED Course And Treatment O2 Sat by Pulse Oximetry: 99 (RA) Pulse Ox Interpretation: Normal Medical Decision Making Medical Decision Making: Impression: Abdominal pain Prior records reviewed, patient has been in this ER 5x over the past 2 months for similar complaints. She had a CT Abdomen/Pelvis performed on 02/23 which indicated colonic diverticulosis and abundant stool throughout the colon. Plan: -- XR Obstructive series -- Urinalysis Case discussed with Mauro Gomez and Dr. Jeffery who are both agreeable with plan for discharge home. Spoke with patient's daughter who was informed of need to take medications, including miralax and linzess, as prescribed. Patient to follow up with her PMD in 2-3 days. Disposition Discussed With .: Nikolay May Doctor Will See Patient In The: Office - Disposition Referrals: Nikolay May MD [Staff Provider] - Flakito Manuel MD [Staff Provider] - Disposition: HOME/ ROUTINE Disposition Time: 16:06 Condition: STABLE Additional Instructions: Use Miralax twice q day. Use Benefiber daily. Contact Dr. Manuel as needed. Instructions: Constipation in Adults Forms: [facility] (Polish), General Discharge Instructions - POA Present On Arrival: None - Clinical Impression Clinical Impression: Constipation - Scribe Statement The provider has reviewed the documentation as recorded by the Abbi Tomas Provider Attestation: All medical record entries made by the Abbi were at my direction and personally dictated by me. I have reviewed the chart and agree that the record accurately reflects my personal performance of the history, physical exam, medical decision making, and the department course for this patient. I have also personally directed, reviewed, and agree with the discharge instructions and disposition.
[2018-02-27 13:48] LABS: SQUAMOUS EPITHIAL 1 /hpf (0-5); URINE BILIRUBIN NEGATIVE (NEGATIVE); URINE BLOOD 1+ (NEGATIVE); URINE CLARITY Clear (Clear); URINE COLOR Yellow (YELLOW); URINE GLUCOSE (UA) NORMAL (Normal); URINE LEUKOCYTE ESTERASE TRACE Leu/uL (Negative); URINE PROTEIN NEGATIVE (NEGATIVE); URINE UROBILINOGEN NORMAL mg/dL (0.2-1.0)
--- NOTE | 2018-02-27 14:30 | RAD ---
PROCEDURE: Radiographs of the chest and abdomen (obstructive series) HISTORY: Abdominal pain COMPARISON: CT abdomen and pelvis from 02/23/2018 TECHNIQUE: AP radiograph of the chest, with upright and supine radiographs of the abdomen. FINDINGS: CHEST: Lungs: The lungs are clear. Cardiovascular: Normal size heart. No pulmonary vascular congestion. Pleura: No pleural fluid. No pneumothorax. Other findings: None. ABDOMEN AND PELVIS: Bowel: There is moderate amount of stool in the colon. The bowel gas pattern is nonobstructive. Free air: None. Bones: Diffuse bone demineralization and severe levoscoliosis in the lumbar spine. Postsurgical changes in the right hip. Other findings: None. IMPRESSION: Constipation. No evidence of bowel obstruction. Clear lungs.
[2018-02-27 15:25] VITALS: BP 132/68; PULSE 61; TEMP 97.9
[2018-02-27 16:07] VITALS: O2SAT 99
== END 2018-02-27 17:40 | disposition home or self-care (01) ==
LOC: C.ER 12:36
DX: K59.00 Constipation, unspecified (principal)

== ENCOUNTER 2018-03-10 10:51 | Emergency (ER) | payer MEDICARE, BC ==
[2018-03-10 11:18] VITALS: RESP 18; O2SAT 98
--- NOTE | 2018-03-10 12:26 | RAD ---
Date of service: 03/10/2018 PROCEDURE: Radiographs of the chest and abdomen (obstructive series) HISTORY: abdominal pain, constipation COMPARISON: 01/05/2018 single-view chest TECHNIQUE: AP radiograph of the chest, with upright and supine radiographs of the abdomen. FINDINGS: CHEST: Lungs: Clear. Cardiovascular: Dextro cardia. Pleura: No pleural fluid. No pneumothorax. Other findings: None. ABDOMEN AND PELVIS: Bowel: Unremarkable bowel gas pattern. No evidence of mechanical obstruction. Free air: None. Bones: Severe thoracolumbar scoliosis, secondary degenerative change. Other findings: None. IMPRESSION: No significant or acute findings to account for/ related to the clinical presentation. Additional benign and/or incidental findings described above.
--- NOTE | 2018-03-10 13:32 | C.PDOC ---
History Of Present Illness 87 year old female with history of multiple medical problems, is sent from home for evaluation of abdominal pain which began last night. Patient has history of chronic constipation and has been seen by Dr. Manuel (GI). Patient states she had not been able to move her bowels for the past 3 days and is taking Miralax. Patient complains of a 10/10 pain to her abdominal and vaginal areas, but states pain has currently resolved in the ED. Patient also reports recent history of UTI; she was using Macrobid but stopped treatment because she developed vaginal itching. Patient denies fever, chills, nausea and vomiting. Time Seen by Provider: 03/10/18 11:18 Chief Complaint (Nursing): Abdominal Pain History Per: Patient History/Exam Limitations: no limitations Onset/Duration Of Symptoms: Hrs Current Symptoms Are (Timing): Better Pain Scale Rating Of: 10 Location Of Pain/Discomfort: Diffuse Quality Of Discomfort: "Pain" Associated Symptoms: Constipation. denies: Fever, Chills, Nausea, Vomiting Last Bowel Movement: Days Ago (3) Additional History Per: Patient Past Medical History Reviewed: Historical Data, Nursing Documentation, Vital Signs Vital Signs: Last Vital Signs Temp 97.4 F L 03/10/18 11:09 Pulse 65 03/10/18 11:09 Resp 18 03/10/18 11:09 BP 129/75 03/10/18 11:09 Pulse Ox 98 03/10/18 13:48 - Medical History PMH: Arthritis, Atrial Fibrillation, HTN, Chronic Kidney Disease Surgical History: No Surg Hx - [facility] Procedures CORONAR ARTERIOGR-2 CATH (11/18/06) RT & LT HEART ANGIOCARD (11/18/06) RT/LEFT HEART CARD CATH (11/18/06) Family History: States: Unknown Family Hx - Social History Hx Tobacco Use: No Hx Alcohol Use: No Hx Substance Use: No - Immunization History Hx Tetanus Toxoid Vaccination: No Hx Influenza Vaccination: Yes Hx Pneumococcal Vaccination: No Review Of Systems Constitutional: Negative for: Fever, Chills Gastrointestinal: Positive for: Abdominal Pain, Constipation. Negative for: Nausea, Vomiting Genitourinary: Positive for: Other (vaginal pain ) Physical Exam - Physical Exam Appears: Non-toxic, No Acute Distress, Other (frail ) Skin: Normal Color, Warm, Dry Head: Atraumatic, Normacephalic Eye(s): bilateral: Normal Inspection Oral Mucosa: Moist Neck: Supple Chest: Symmetrical, No Deformity, No Tenderness Cardiovascular: Rhythm Regular, No Murmur Respiratory: Normal Breath Sounds, No Rales, No Rhonchi, No Wheezing Gastrointestinal/Abdominal: Soft, No Tenderness, No Guarding, No Rebound, Other (no muscle mass in abdominal wall, colon full of stool along the entire course ) Extremity: Normal ROM, Capillary Refill (less than 2 seconds ) Neurological/Psych: Oriented x3, Normal Speech, Normal Cognition, Other (calm, cooperative ) ED Course And Treatment O2 Sat by Pulse Oximetry: 98 (on RA) Pulse Ox Interpretation: Normal Medical Decision Making Medical Decision Making: Impression: 87 year old female with abdominal and vaginal pain Plan: * obstructive series abdomen * urinalysis * reassess and disposition Progress: Obstructive Series Abdomen and Urinalysis ordered and reviewed. Pending callback from Dr. May. Spoke with daughter, patient frequently c/o abdominal pain and constipation. Difficult getting her to her doctor's appointments, . Spoke with Dr. Brody May, agrees patient can go home. Disposition Counseled Patient/Family Regarding: Diagnosis, Need For Followup, Rx Given - Disposition Referrals: Mic May MD [Staff Provider] - Disposition: HOME/ ROUTINE Disposition Time: 14:31 Condition: STABLE Instructions: Constipation, Adult (DC) Forms: [facility] (Maltese), General Discharge Instructions - Clinical Impression Clinical Impression: Constipation - Scribe Statement The provider has reviewed the documentation as recorded by the Scribe (Maryan Benitez) Provider Attestation: All medical record entries made by the Scribe were at my direction and personally dictated by me. I have reviewed the chart and agree that the record accurately reflects my personal performance of the history, physical exam, medical decision making, and the department course for this patient. I have also personally directed, reviewed, and agree with the discharge instructions and disposition.
[2018-03-10 13:49] LABS: URINE BACTERIA RARE (<OCC); URINE BILIRUBIN NEGATIVE (NEGATIVE); URINE BLOOD 2+ (NEGATIVE); URINE CLARITY Clear (Clear); URINE COLOR Yellow (YELLOW); URINE GLUCOSE (UA) NORMAL (Normal); URINE LEUKOCYTE ESTERASE 3+ Leu/uL (Negative); URINE PROTEIN NEGATIVE (NEGATIVE); URINE UROBILINOGEN NORMAL mg/dL (0.2-1.0)
[2018-03-10 17:07] VITALS: BP 122/72; PULSE 68; TEMP 97.6
== END 2018-03-10 17:49 | disposition home or self-care (01) ==
LOC: C.ER 10:51
DX: K59.00 Constipation, unspecified (principal); I48.91 Unspecified atrial fibrillation; I12.9 Hypertensive chronic kidney disease with stage 1 through stage 4 chronic kidney disease, or unspecified chronic kidney disease; N18.9 Chronic kidney disease, unspecified

== ENCOUNTER 2018-03-23 19:23 | Emergency (ER) | payer MEDICARE, BC ==
[2018-03-23 19:42] VITALS: O2SAT 96
[2018-03-23] MEDS ORDERED: Sodium Chloride 0.9% 1,000 ML IV ONE (20:24)
--- NOTE | 2018-03-23 20:24 | C.PDOC ---
History Of Present Illness 87 y/o female presents to the ED with complaints of intermittent abdominal pain , ongoing for months. She denies any associated fever, chills, vomiting, diarrhea, dysuria, or frequency. Pain is described as a dull, crampy discomfort. Of note patient was seen here on 03/10 and discharged home with diagnosis of constipation. She has had numerous visits to the ED for similar complaints. Time Seen by Provider: 03/23/18 20:24 Chief Complaint (Nursing): Abdominal Pain History Per: Patient History/Exam Limitations: no limitations Onset/Duration Of Symptoms: Intermittent Episodes Current Symptoms Are (Timing): Still Present Severity: Mild Pain Scale Rating Of: 4 Location Of Pain/Discomfort: Diffuse Radiation Of Pain To:: None Quality Of Discomfort: Dull, Cramping Associated Symptoms: denies: Fever, Chills Alleviating Factors: None Additional History Per: Prior Records Abnormal Vaginal Bleeding: No Past Medical History Reviewed: Historical Data, Nursing Documentation, Vital Signs Vital Signs: Last Vital Signs Temp 97.6 F 03/23/18 19:41 Pulse 68 03/23/18 23:04 Resp 14 03/23/18 23:04 BP 139/90 03/23/18 23:04 Pulse Ox 96 03/24/18 01:19 - Medical History PMH: Arthritis, Atrial Fibrillation, HTN, Chronic Kidney Disease - [facility] Procedures CORONAR ARTERIOGR-2 CATH (11/18/06) RT & LT HEART ANGIOCARD (11/18/06) RT/LEFT HEART CARD CATH (11/18/06) Family History: States: Unknown Family Hx - Social History Hx Tobacco Use: No Hx Alcohol Use: No Hx Substance Use: No - Immunization History Hx Tetanus Toxoid Vaccination: No Hx Influenza Vaccination: Yes Hx Pneumococcal Vaccination: No Review Of Systems Constitutional: Negative for: Fever, Chills Gastrointestinal: Positive for: Abdominal Pain. Negative for: Nausea, Vomiting , Diarrhea Genitourinary: Negative for: Dysuria, Frequency, Incontinence Physical Exam - Physical Exam Appears: Non-toxic, No Acute Distress Skin: Warm, Dry Head: Normacephalic Eye(s): bilateral: Normal Inspection Oral Mucosa: Dry Neck: Trachea Midline, Supple Chest: Symmetrical Cardiovascular: Rhythm Regular Respiratory: No Rales, No Rhonchi, No Wheezing Gastrointestinal/Abdominal: Bowel Sounds (tympanic to percussion), Soft, No Tenderness, No Guarding, No Rebound Extremity: Bilateral: Atraumatic, Normal Color And Temperature Pulses: Left Dorsalis Pedis: Normal, Right Dorsalis Pedis: Normal Neurological/Psych: Oriented x3 ED Course And Treatment - Laboratory Results Result Diagrams: 03/23/18 21:00 03/23/18 21:00 O2 Sat by Pulse Oximetry: 96 (RA) Pulse Ox Interpretation: Normal - Radiology CXR: Interpreted by Me, Viewed By Me CXR Interpretation: No: Infiltrates, Fracture, Pnemothorax - Other Rad obstr X-Ray: Interpreted by Me, Viewed By Me Interpretation: no free air, lots of stool, no obstr Progress Note: Blood work and urine sent for analysis. EKG ordered and reviewed. 1L of IV fluids administered. Reevaluation Time: 01:18 Reassessment Condition: Improved Medical Decision Making Medical Decision Making: Upon provider reevaluation patient is feeling better, is medically stable, and requires no further treatment in the ED at this time. Patient will be discharged home with Rx for miralax. Counseling was provided and all questions were answered regarding diagnosis and need for follow up with dr magana. There is agreement to discharge plan. Return if symptoms persist or worsen. Disposition Counseled Patient/Family Regarding: Studies Performed, Diagnosis, Need For Followup, Rx Given - Disposition Referrals: Mic Magana MD [Staff Provider] - Disposition: HOME/ ROUTINE Disposition Time: 20:24 Condition: FAIR Additional Instructions: Please return if symptoms recur Prescriptions: Polyethylene Glycol 3350 [Miralax] 17 gm PO DAILY #270 ml Instructions: Constipation, Adult (DC), Acute Abdomen (Belly Pain), Adult (DC) Forms: [employer] [email or web address] (Belgian) - Clinical Impression Clinical Impression: Abdominal pain, Constipation - Scribe Statement The provider has reviewed the documentation as recorded by the Scribe (Mary Beth Khan) Provider Attestation: All medical record entries made by the Scribe were at my direction and personally dictated by me. I have reviewed the chart and agree that the record accurately reflects my personal performance of the history, physical exam, medical decision making, and the department course for this patient. I have also personally directed, reviewed, and agree with the discharge instructions and disposition.
[2018-03-23 21:16] LABS: BASO # 0.1 K/uL (0.0-0.2); BASO % 1.4 % (0.0-2.0); EOS % 0.1 % (0.0-4.0); HEMOGLOBIN 12.5 g/dL (11.0-16.0); LYMPH % 18.1 % (20.0-40.0); MEAN CELL VOLUME 88.4 fL (81.0-99.0); MEAN CORPUSCULAR HEMOGLOBIN 30.4 pg (27.0-31.0); MEAN CORPUSCULAR HGB CONC 34.4 g/dL (33.0-37.0); MONO # 0.5 K/uL (0.0-0.8); MONO % 9.5 % (0.0-10.0); NEUT # 3.7 K/uL (1.8-7.0); NEUT % 70.9 % (50.0-75.0); NRBC % 0.1 % (0.0-2.0); RBC 4.12 Mil/uL (3.80-5.20); RED CELL DISTRIBUTION WIDTH 14.6 % (11.5-14.5); WHITE BLOOD COUNT 5.3 K/uL (4.8-10.8)
[2018-03-23 21:17] LABS: SQUAMOUS EPITHIAL < 1 /hpf (0-5); URINE BACTERIA RARE (<OCC); URINE BILIRUBIN NEGATIVE (NEGATIVE); URINE BLOOD 1+ (NEGATIVE); URINE CLARITY Clear (Clear); URINE COLOR Straw (YELLOW); URINE GLUCOSE (UA) NORMAL (Normal); URINE LEUKOCYTE ESTERASE 3+ Leu/uL (Negative); URINE PROTEIN NEGATIVE (NEGATIVE); URINE UROBILINOGEN NORMAL mg/dL (0.2-1.0)
[2018-03-23 21:33] LABS: ALB/GLOB RATIO 1.5 (1.0-2.1); ALBUMIN 4.1 g/dL (3.5-5.0); ALT/SGPT 12 U/L (9-52); AST/SGOT 42 U/L (14-36); BLOOD UREA NITROGEN 15 mg/dL (7-17); CALCIUM 8.7 mg/dl (8.6-10.4); GFR AFRICAN-AMERICAN > 60; GFR NON-AFRICAN AMERICAN > 60; LIPASE 150 U/L (23-300)
[2018-03-23 23:04] VITALS: RESP 14
[2018-03-23] MEDS ORDERED: Piperacillin/Tazobact 3.375 gm 100 ML IVPB STA (23:38)
[2018-03-24] MEDS ORDERED: Piperacillin/Tazobact 3.375 gm 100 ML IVPB ONE (00:01)
[2018-03-24 01:34] VITALS: BP 147/86; PULSE 80; TEMP 98.5
--- NOTE | 2018-03-24 11:53 | RAD ---
Date of service: 03/24/2018 PROCEDURE: Radiographs of the chest and abdomen (obstructive series) HISTORY: White what is today Friday Vipin item are no proper COMPARISON: No prior. TECHNIQUE: AP radiograph of the chest, with upright and supine radiographs of the abdomen. FINDINGS: CHEST: Lungs: Clear. Cardiovascular: Normal size heart. No pulmonary vascular congestion. Pleura: No pleural fluid. No pneumothorax. Other findings: None. ABDOMEN AND PELVIS: Bowel: Unremarkable bowel gas pattern. No evidence of mechanical obstruction. Free air: None. Bones: Unremarkable. Other findings: None. IMPRESSION: Unremarkable radiographs of chest and abdomen. No evidence of mechanical bowel obstruction.
--- NOTE | 2018-03-26 21:37 | CARD ---
APPROVED REPORT Date of service: 03/24/2018 EKG Measurement Heart [id number] <Conclusion> Atrial fibrillation Nonspecific T wave abnormality Abnormal ECG
== END 2018-03-24 02:27 | disposition home or self-care (01) ==
LOC: C.ER 19:23
DX: R10.9 Unspecified abdominal pain (principal); K59.00 Constipation, unspecified; I12.9 Hypertensive chronic kidney disease with stage 1 through stage 4 chronic kidney disease, or unspecified chronic kidney disease; N18.9 Chronic kidney disease, unspecified; I48.91 Unspecified atrial fibrillation
CPT/HCPCS: 74022; 80053; 81001; 83690; 85025; 93005; 96374; 99285; J2543; J7030

== ENCOUNTER 2018-05-20 12:50 | Emergency (ER) | payer MEDICARE, BC ==
--- NOTE | 2018-05-20 13:18 | C.PDOC ---
History Of Present Illness 87 y/o female presents to the ED complaining of feeling constipated today. Last bowel movement was yesterday. She reports no changes in diet, and has been eating normally today. No blood in the stool. Otherwise she denies any vomiting, diarrhea, fever, chills, or urinary symptoms. Time Seen by Provider: 05/20/18 13:05 Chief Complaint (Nursing): Abdominal Pain History Per: Patient History/Exam Limitations: no limitations Onset/Duration Of Symptoms: Days Current Symptoms Are (Timing): Still Present Associated Symptoms: Constipation Past Medical History Reviewed: Historical Data, Nursing Documentation, Vital Signs Vital Signs: Last Vital Signs Temp 97.8 F 05/20/18 13:04 Pulse 67 05/20/18 13:04 Resp 20 05/20/18 13:04 BP 158/92 H 05/20/18 13:04 Pulse Ox 100 05/20/18 13:04 - Medical History PMH: Arthritis, Atrial Fibrillation, HTN, Chronic Kidney Disease - [facility] Procedures CORONAR ARTERIOGR-2 CATH (11/18/06) RT & LT HEART ANGIOCARD (11/18/06) RT/LEFT HEART CARD CATH (11/18/06) Family History: States: Unknown Family Hx - Social History Hx Tobacco Use: No Hx Alcohol Use: No Hx Substance Use: No - Immunization History Hx Tetanus Toxoid Vaccination: (unk) Hx Influenza Vaccination: Yes (2016) Hx Pneumococcal Vaccination: (unk) Review Of Systems Except As Marked, All Systems Reviewed And Found Negative. Constitutional: Negative for: Fever, Chills Eyes: Negative for: Vision Change Cardiovascular: Negative for: Chest Pain Gastrointestinal: Positive for: Constipation. Negative for: Nausea, Vomiting, Diarrhea Genitourinary: Negative for: Dysuria, Frequency, Incontinence, Hematuria Neurological: Negative for: Weakness, Headache Physical Exam - Physical Exam Appears: Non-toxic, No Acute Distress Skin: Normal Color, Warm, Dry Head: Atraumatic, Normacephalic Eye(s): bilateral: Normal Inspection, PERRL, EOMI Oral Mucosa: Moist Neck: Normal ROM Chest: Symmetrical Cardiovascular: Rhythm Regular, No Murmur Respiratory: Normal Breath Sounds, No Accessory Muscle Use Gastrointestinal/Abdominal: Bowel Sounds (positive), Soft, No Tenderness, Hernia (Right-sided abdominal hernia), Other (Well-healed midline surgical scar) Extremity: Bilateral: Atraumatic, Normal Color And Temperature, Normal ROM Neurological/Psych: Oriented x3, Normal Speech ED Course And Treatment - Laboratory Results Result Diagrams: 05/20/18 14:05 05/20/18 14:05 O2 Sat by Pulse Oximetry: 100 (RA) Pulse Ox Interpretation: Normal - CT Scan/US CT Abd/Pelvis Other Rad Studies (CT/US): Read By Radiologist, Radiology Report Reviewed CT/US Interpretation: Evelyn. Patient NameLOLY APARICIO C / [id number]. Azalia Espinal MD. Study [id number] 16:08:47Transcriber. Sex / AgeF / [id number] Hampton MD. [facility] CountyApproval [id number] 16:46:05. My Comment. Study Comments. Report. PROCEDURE: CT Abdomen and Pelvis with oral and IV contrast. HISTORY: r/o obstruction. COMPARISON: Obstructive series performed 02/23/18, CTA abdomen pelvis performed 01/05/18. TECHNIQUE: Contiguous axial images of the abdomen and pelvis. Oral and IV contrast was administered. Coronal and Sagittal reformats generated and reviewed. Contrast dose: 100 mL Visipaque IV. Radiation dose: Total exam DLP = 207.74 mGy-cm. This CT exam was performed using one or more of the following dose reduction techniques: Automated exposure control, adjustment of the mA and/or kV according to patient size, and/or use of iterative reconstruction technique. FINDINGS: LOWER THORAX: Bibasilar atelectasis. There is no visible pleural effusion or pneumothorax. Partially imaged cardiomegaly with heart predominantly in the right hemithorax. LIVER: Unremarkable. No gross lesion or ductal dilatation. GALLBLADDER AND BILE DUCTS: Unremarkable. PANCREAS: Unremarkable. No mass. No ductal dilatation. SPLEEN: Unremarkable. No splenomegaly. ADRENALS: Nodular hypertrophy, left adrenal gland. Right adrenal gland appears unremarkable. KIDNEYS AND URETERS: The kidneys enhance symmetrically. No hydronephrosis or obstructing renal calculus. Multiple large bilateral renal cysts re-identified. BLADDER: The urinary bladder appears unremarkable. REPRODUCTIVE: Uterus is absent, presumably due to hysterectomy. APPENDIX: The appendix is not identified. BOWEL: The stomach is nondistended. The bowel loops appear within normal limits of caliber without evidence of intestinal obstruction. Extensive colonic diverticulosis without CT evidence of acute diverticulitis. PERITONEUM: No significant free fluid. No definite free air. LYMPH NODES: No bulky lymphadenopathy identified. VASCULATURE: No aortic aneurysm. BONES: Multilevel degenerative changes. Severe scoliosis. Osseous demineralization. Right hip ORIF hardware with resultant streak artifact which limits evaluation of the pelvis. Old pubic rami fractures. Question vertebral body hemangioma, L3. Anterolisthesis of L4 on L5. OTHER FINDINGS: None. IMPRESSION: Extensive colonic diverticulosis without CT evidence of acute diverticulitis. Multiple large bilateral renal cysts re-identified. Nodular hypertrophy of the left adrenal gland. Partially imaged cardiomegaly predominantly within the right hemithorax. Bibasilar atelectasis. Additional findings as above. Medical Decision Making Medical Decision Making: Impression: Abdominal pain, Constipation, r/o obstruction Initial Plan: --EKG --Blood work --Urinalysis --Urine culture --CT Abd/Pelvis with PO & IV contrast Disposition Counseled Patient/Family Regarding: Studies Performed, Diagnosis - Disposition Referrals: [employer] [facility], [Non-Staff] - Disposition: HOME/ ROUTINE Disposition Time: 16:40 Condition: GOOD Additional Instructions: MARKUS SALCIDO, thank you for letting us take care of you today. Your provider was Abdon Cormier DO and you were treated for ABD PAIN. The emergency medical care you received today was directed at your acute symptoms. If you were prescribed any medication, please fill it and take as directed. It may take several days for your symptoms to resolve. Return to the Emergency Department if your symptoms worsen, do not improve, or if you have any other problems. Please contact your doctor or call one of the physicians/clinics you have been referred to that are listed on the Patient Visit Information form that is included in your discharge packet. Bring any paperwork you were given at discharge with you along with any medications you are taking to your follow up visit. Our treatment cannot replace ongoing medical care by a primary care provider outside of the emergency department. Thank you for allowing the [facility] team to be part of your care today. Increase the fiber in your diet. Follow up with your primary care doctor in 2-3 dys for re-evaluation and further management. Prescriptions: Docusate [Colace] 100 mg PO Q8 PRN #20 cap PRN Reason: Constipation Instructions: High Fiber Diet, Constipation, Adult (DC), Diverticulosis (DC) Forms: [employer] (South African) - Clinical Impression Clinical Impression: Constipation - Scribe Statement The provider has reviewed the documentation as recorded by the Scribe (Mary Beth Khan) Provider Attestation: All medical record entries made by the Scribe were at my direction and personally dictated by me. I have reviewed the chart and agree that the record accurately reflects my personal performance of the history, physical exam, medical decision making, and the department course for this patient. I have also personally directed, reviewed, and agree with the discharge instructions and disposition.
[2018-05-20] MEDS ORDERED: Iohexol 240 (50 ml) PO ONE (13:40)
[2018-05-20 13:53] LABS: URINE BILIRUBIN NEGATIVE (NEGATIVE); URINE BLOOD 1+ (NEGATIVE); URINE CLARITY Clear (Clear); URINE COLOR Straw (YELLOW); URINE GLUCOSE (UA) NORMAL (Normal); URINE LEUKOCYTE ESTERASE NEG Leu/uL (Negative); URINE PROTEIN NEGATIVE (NEGATIVE); URINE UROBILINOGEN NORMAL mg/dL (0.2-1.0)
[2018-05-20 14:09] LABS: BASO # 0.1 K/uL (0.0-0.2); HEMOGLOBIN 13.6 g/dL (11.0-16.0); LYMPH # 0.7 K/uL (1.0-4.3); LYMPH % 12.6 % (20.0-40.0); MEAN CELL VOLUME 88.8 fL (81.0-99.0); MEAN CORPUSCULAR HEMOGLOBIN 30.6 pg (27.0-31.0); MEAN CORPUSCULAR HGB CONC 34.5 g/dL (33.0-37.0); MEAN PLATELET VOLUME 6.4 fL (7.2-11.7); MONO # 0.5 K/uL (0.0-0.8); MONO % 9.7 % (0.0-10.0); NEUT # 4.1 K/uL (1.8-7.0); NEUT % 76.7 % (50.0-75.0); NRBC % 0.1 % (0.0-2.0); RBC 4.44 Mil/uL (3.80-5.20); WHITE BLOOD COUNT 5.3 K/uL (4.8-10.8)
[2018-05-20] MEDS ORDERED: Iohexol 240 (50 ml) ONE (14:10)
[2018-05-20 14:23] LABS: ALB/GLOB RATIO 1.5 (1.0-2.1); ALT/SGPT 31 U/L (9-52); AST/SGOT 26 U/L (14-36); BLOOD UREA NITROGEN 12 mg/dL (7-17); CALCIUM 9.2 mg/dl (8.6-10.4); GFR NON-AFRICAN AMERICAN > 60; LIPASE 126 U/L (23-300)
[2018-05-20] MEDS ORDERED: Iodixanol 320 MG/ML 100 ML BOTTLE IV ONE (15:52)
--- NOTE | 2018-05-20 16:47 | CT ---
PROCEDURE: CT Abdomen and Pelvis with oral and IV contrast. HISTORY: r/o obstruction COMPARISON: Obstructive series performed 02/23/18, CTA abdomen pelvis performed 01/05/18 TECHNIQUE: Contiguous axial images of the abdomen and pelvis. Oral and IV contrast was administered. Coronal and Sagittal reformats generated and reviewed. Contrast dose: 100 mL Visipaque IV Radiation dose: Total exam DLP = 207.74 mGy-cm. This CT exam was performed using one or more of the following dose reduction techniques: Automated exposure control, adjustment of the mA and/or kV according to patient size, and/or use of iterative reconstruction technique. FINDINGS: LOWER THORAX: Bibasilar atelectasis. There is no visible pleural effusion or pneumothorax. Partially imaged cardiomegaly with heart predominantly in the right hemithorax. LIVER: Unremarkable. No gross lesion or ductal dilatation. GALLBLADDER AND BILE DUCTS: Unremarkable. PANCREAS: Unremarkable. No mass. No ductal dilatation. SPLEEN: Unremarkable. No splenomegaly. ADRENALS: Nodular hypertrophy, left adrenal gland. Right adrenal gland appears unremarkable. KIDNEYS AND URETERS: The kidneys enhance symmetrically. No hydronephrosis or obstructing renal calculus. Multiple large bilateral renal cysts re-identified. BLADDER: The urinary bladder appears unremarkable. REPRODUCTIVE: Uterus is absent, presumably due to hysterectomy. APPENDIX: The appendix is not identified. BOWEL: The stomach is nondistended. The bowel loops appear within normal limits of caliber without evidence of intestinal obstruction. Extensive colonic diverticulosis without CT evidence of acute diverticulitis. PERITONEUM: No significant free fluid. No definite free air. LYMPH NODES: No bulky lymphadenopathy identified. VASCULATURE: No aortic aneurysm. BONES: Multilevel degenerative changes. Severe scoliosis. Osseous demineralization. Right hip ORIF hardware with resultant streak artifact which limits evaluation of the pelvis. Old pubic rami fractures. Question vertebral body hemangioma, L3. Anterolisthesis of L4 on L5. OTHER FINDINGS: None. IMPRESSION: Extensive colonic diverticulosis without CT evidence of acute diverticulitis. Multiple large bilateral renal cysts re-identified. Nodular hypertrophy of the left adrenal gland. Partially imaged cardiomegaly predominantly within the right hemithorax. Bibasilar atelectasis. Additional findings as above.
[2018-05-20 20:57] VITALS: BP 100/70; PULSE 88; RESP 16; TEMP 98; O2SAT 96
--- NOTE | 2018-05-22 11:51 | CARD ---
APPROVED REPORT Date of service: 05/20/2018 EKG Measurement Heart [id number] <Conclusion> Atrial fibrillation Abnormal ECG
== END 2018-05-20 20:57 | disposition home or self-care (01) ==
LOC: C.ER 12:50
DX: K59.00 Constipation, unspecified (principal); I12.9 Hypertensive chronic kidney disease with stage 1 through stage 4 chronic kidney disease, or unspecified chronic kidney disease; N18.9 Chronic kidney disease, unspecified; I48.91 Unspecified atrial fibrillation
CPT/HCPCS: 74177; 80053; 81001; 83690; 84484; 85025; 87086; 93005; 99285; Q9966; Q9967